=== PATIENT | male | born 1975 | race Two or more races ===

== ENCOUNTER 2017-10-09 12:14 | Emergency (ER) | payer SELFPAY ==
[~2017-10-09] VITALS: Ht 185.4 cm; Wt 95.3 kg
--- NOTE | 2017-10-09 12:18 | NUR ---
NEW IV STARTED ON RAC, 18 G.
--- NOTE | 2017-10-09 12:20 | NUR ---
PRESENTS TO ER C/O LEFT SHOULDER DISLOCATION S/P TRIP AND FALL. PATIENT IN SEVERE PAIN, GUARDING LEFT SHOULDER. ASSISTED TO BED, A/OX 4. BREATHING EVEN BUT LABORED FROM PAIN. SAFETY AND COMFORT MEASURES IN PLACE. AWAITING MD ORDERS.
[2017-10-09] MEDS ORDERED: ONDANSETRON HCL/PF 4 MG/2 ML VIAL ONE (12:23)
[2017-10-09] MEDS ORDERED: HYDROMORPHONE INJ 2 MG/ML DISP.SYRIN ONE (12:24)
[2017-10-09] MEDS ORDERED: ONDANSETRON HCL/PF 4 MG/2 ML VIAL IVP ONE (12:30)
[2017-10-09] MEDS ORDERED: HYDROMORPHONE INJ 2 MG/ML DISP.SYRIN IV ONE (12:30)
--- NOTE | 2017-10-09 12:30 | NUR ---
PATIENT MEDICATED PER MD ORDERS.
[2017-10-09] MEDS ORDERED: FENTANYL PF 100MCG/2ML AMPUL ONE (12:44)
[2017-10-09] MEDS ORDERED: MIDAZOLAM HCL 5 MG/5ML VIAL ONE (12:45)
--- NOTE | 2017-10-09 12:55 | NUR ---
MD AT BEDSIDE FOR LEFT SHOULDER REDUCTION. VITALS STABLE. PROCEDURE UNDER WAY.
[2017-10-09] MEDS ORDERED: MIDAZOLAM HCL 2 MG/2ML VIAL IV ONE (13:00)
[2017-10-09] MEDS ORDERED: FENTANYL PF 100MCG/2ML AMPUL IV ONE ×2 (13:00→13:30)
--- NOTE | 2017-10-09 13:00 | NUR ---
SUCCESSFUL LEFT SHOULDER REDUCTION. NO COMPLICATIONS NOTED, VITALS REMAINS STABLE. SLING PLACED ON LEFT SHOULDER. WILL CONTINUE TO MONITOR.
[2017-10-09 13:37] VITALS: BP 126/52
--- NOTE | 2017-10-09 13:39 | NUR ---
IV removed. Catheter intact and site benign. Pressure and 4x4 applied to site. No bleeding noted.
--- NOTE | 2017-10-09 13:42 | NUR ---
IV removed. Catheter intact and site benign. Pressure and 4x4 applied to site. No bleeding noted.
--- NOTE | 2017-10-09 13:42 | NUR ---
Patient discharged to home in stable condition. Written and verbal after care instructions given. Patient verbalizes understanding of instruction.
== END 2017-10-09 13:42 | disposition home or self-care (01) ==
LOC: ER 12:16
DX: S43.015A Anterior dislocation of left humerus, initial encounter (principal); X50.0XXA Overexertion from strenuous movement or load, initial encounter; Y93.01 Activity, walking, marching and hiking; Y92.89 Other specified places as the place of occurrence of the external cause; Y99.8 Other external cause status
CPT/HCPCS: 73030-TC; A4606; J1170; J2250; J2405; J3010; Z7610